=== PATIENT | male | born 1940 | race Caucasian/White ===

== ENCOUNTER 2018-12-18 11:03 | Observation (INO) | payer OTHER ==
[~2018-12-18] VITALS: Ht 175.3 cm; Wt 124.7 kg
[2018-12-18 12:06] VITALS: BP 148/65
[2018-12-18] MEDS ORDERED: GLUCOTROL5 MG PO (12:20)
[2018-12-18] MEDS ORDERED: ATA10 PO (12:21)
[2018-12-18] MEDS ORDERED: PRILOSEC OTC20 M1 PO (12:21)
[2018-12-18] MEDS ORDERED: LASIX40 MG PO (12:21)
[2018-12-18] MEDS ORDERED: LEVOTHYROXINE0.1 M2 PO (12:22)
[2018-12-18] MEDS ORDERED: NATURAL IRON65 MG PO (12:22)
[2018-12-18] MEDS ORDERED: GLU850 PO (12:23)
[2018-12-18] MEDS ORDERED: FLO4 PO (12:23)
[2018-12-18] MEDS ORDERED: PROBIOTIC1 EAC1 PO (12:23)
[2018-12-18] MEDS ORDERED: NEURONTIN600 MG PO (12:23)
[2018-12-18] MEDS ORDERED: GOOD NEIGHBOR600 M1 PO (12:23)
[2018-12-18] MEDS ORDERED: BENADRYL ALLERG25 M1 PO (12:24)
[2018-12-18] MEDS ORDERED: NATURAL MAGNES200 MG PO (12:24)
[2018-12-18] MEDS ORDERED: NOVI SQ (12:25)
[2018-12-18] MEDS ORDERED: LANTUS SOLOS100 U/M1 SC (12:25)
[2018-12-18] MEDS ORDERED: HUMULIN N100 U/1 ML SC (12:25)
[2018-12-18] MEDS ORDERED: TRAMADOL HCL50 MG PO (12:26)
[2018-12-18] MEDS ORDERED: TYLENOL EXTRA500 M3 PO (12:26)
[2018-12-18] MEDS ORDERED: METOPROLOL TART25 M1 PO (12:27)
[2018-12-18 13:35] LABS: BASOPHIL % 0.3 % (0-2); PLATELET COUNT 230 x10^3mcL (130-400)
[2018-12-18 13:38] LABS: RED CELL DISTRIBUTION WIDTH 15.5 % (11.5-14.5)
[2018-12-18 13:43] LABS: CALCIUM 8.8 mg/dL (8.5-10.1); CARBON DIOXIDE 30.6 mmol/L (21-32); CHLORIDE SERUM 101 mmol/L (98-107); GLUCOSE SERUM 133 mg/dL (74-106); SODIUM SERUM 138 mmol/L (136-145)
--- NOTE | 2018-12-18 14:07 | NUR ---
PT RESTING IN BED EATING LUNCH. HOB ELEVATED. ASPIRATION PRECAUTIONS. TOLERATING DIET WELL AT THIS TIME. IV TO L HAND, NO REDNESS OR SWELLING TO IV SITE. PARRA CATHETER DRAINING YELLOW URINE TO GRAVITY. COLOSTOMY WITH DARK GREEN/BROWN OUTPUT. G TUBE IN PLACE. AT BEDSIDE. REFUSED TO HAVE PT REPOSITIONED AT THIS TIME. CALL LIGHT WITHIN REACH. WILL CONTINUE TO MONITOR.
[2018-12-18 16:10] VITALS: BP 112/59
[2018-12-18 18:19] VITALS: BP 112/59
--- NOTE | 2018-12-18 18:40 | NUR ---
DR. MURO AT BEDSIDE AND PULLED OUT G-TUBE. 4X4 GAUZE AND ABD PAD APPLIED TO SITE. WITH SMALL SANGUINEOUS DRAINAGE NOTED. PICTURE TAKEN AND PLACED IN CHART. PT TOLERATED WELL. DENIES PAIN. FAMILY PRESENT AT BEDSIDE. PARRA CARE PROVIDED PER PROTOCOL. IV TO L HAND, NO REDNESS OR SWELLING. PT'S STATED SHE WILL EMPTY COLOSTOMY BAG. STOMA PINK AND MOIST. NOTED DARK GREEN/BROWN OUTPUT. PT ON HILL-ROM MATTRESS. HOB ELEVATED. BED IN LOW POSITION, CALL LIGHT WITHIN REACH. WILL ENDORSE TO ONCOMING SHIFT.
--- NOTE | 2018-12-18 19:43 | NUR ---
RECEIVED PT FROM PREVIOUS SHIFT. PT A/OX4. DENIES PAIN. DENIES SOB ON RA. IV PATENT, SALINE LOCKED TO L HAND. F/C DRAINING TO GRAVITY WITH YELLOW OUTPUT. COLOSTOMY TO LLQ. PEG TUBE REMOVAL SITE TO ABD, DRESSING CDI. INTERDRY APPLIED TO R ABD FOLDS. AT BEDSIDE. CALL LIGHT WITHIN REACH, BED IN LOW POSITION. WILL CONTINUE TO MONITOR.
[2018-12-18 21:28] VITALS: BP 153/67
--- NOTE | 2018-12-18 22:50 | NUR ---
PLACED ON BIPAP 29/07 RR:12, FIO2:28%. SETTINGS PER . PT TOLERATING WELL. WILL MONITOR
--- NOTE | 2018-12-19 01:57 | NUR ---
PT RESTING IN NO ACUTE DISTRESS. RR EVEN AND UNLABORED. CALL LIGHT WITHIN REACH, BED IN LOW POSITION. WILL CONTINUE TO MONITOR.
[2018-12-19 06:28] VITALS: BP 132/45
--- NOTE | 2018-12-19 07:27 | NUR ---
REPORT TAKEN FROM AUDIOMETRIC TECHNICIAN NURSE AT THE BEDSIDE, PATIENT AWAKE AND ALERT, NO ACUTE DISTRESS REPORTED OR OBSERVED, THE PATIENT'S IS AT THE BEDSIDE, WILL CONTINUE TO MONITOR.
[2018-12-19 08:17] VITALS: BP 150/75
[2018-12-19 11:49] VITALS: BP 136/68
[2018-12-19 16:21] VITALS: BP 124/57
[2018-12-19 17:02] VITALS: BP 124/57
--- NOTE | 2018-12-19 18:10 | NUR ---
PATIENT TO BE DISCHARGED AND TRANSPORTED HOME BY [facility] . PATIENT'S ARRANGED TRANSPORT, ETA [phone].
--- NOTE | 2018-12-19 18:24 | NUR ---
PATIENT'S REFUSED DISCHARGE PHOTOS AT THIS TIME, HOWEVER PHOTOS ARE IN PATIENT'S CHART FROM YESTERDAY. NO CHANGES TO WOUNDS COMPARED TO PHOTOS OBERVED DURING THE SHIFT TODAY.
--- NOTE | 2018-12-19 18:51 | NUR ---
PATIENT TOLERATED TREATMENT WELL, DISCHARGE COMPLETE, PATIENT'S SIGNED DISCHARGE PAPERWORK AT THE BEDSIDE, PENDING R[employer]D LAB TECHNICIAN TO TRANSPORT HOME VIA [facility], IV TO LEFT HAND IN PLACE TILL DISCHARGE, WILL REPORT TO OFFICE SECRETARY NURSE.
--- NOTE | 2018-12-19 19:11 | NUR ---
REPORT GIVEN TO TRAFFIC AGENT NURSE AT THE BEDSIDE, PATIENT AWAKE AND ALERT WITH HIS AT THE BEDSIDE TO HEAR AND PARTICIPATE IN REPORT, IV TO LEFT HAND IN PLACE TILL TRANSPORT ARRIVES, ETA [phone], CARE ENDORSED.
--- NOTE | 2018-12-19 19:30 | NUR ---
RECEIVED PT FRO PREVIOUS SHIFT. PT A/OX4. DENIES PAIN. DENIES SOB ON RA. TRANSPORT AT BEDSIDE TO TAKE PATIENT HOME. IV REMOVED. PT IN NO ACUTE DISTRESS. DISCHARGE INSTRUCTIONS GIVEN BY PREVIOUS SHIFT.
== END 2018-12-19 19:37 | disposition home or self-care (01) | DRG 393 ==
LOC: DU 11:03 → MU 11:03 → DU 11:03 → MU 15:00
PROVIDERS: ADMIT Internal Medicine
PROC: 0DP67UZ Removal of Feeding Device from Stomach, Via Natural or Artificial Opening (ICD-10-PCS; principal; 2018-12-19)
DX: Z43.1 Encounter for attention to gastrostomy (principal); R53.2 Functional quadriplegia; R13.10 Dysphagia, unspecified; J44.9 Chronic obstructive pulmonary disease, unspecified; E11.42 Type 2 diabetes mellitus with diabetic polyneuropathy; E11.51 Type 2 diabetes mellitus with diabetic peripheral angiopathy without gangrene; I48.91 Unspecified atrial fibrillation; E03.9 Hypothyroidism, unspecified; D64.9 Anemia, unspecified; E66.01 Morbid (severe) obesity due to excess calories
CPT/HCPCS: 82962; 90658; G0378; J1815; Q0092; Q0163